=== PATIENT | female | born 1985 | race Caucasian/White ===

== ENCOUNTER → 2017-12-01 | Outpatient (CLI) | payer BC ==
[2017-12-01 15:34] LABS: Basophils % (A) 0 %; Eosinophils # (A) 0.1 k/uL (0-0.7); Eosinophils % (A) 2 %; HCT 39.5 % (34.0-46.0); HGB 13.7 gm/dL (11.4-16.0); Lymphocytes # (A) 2.1 k/uL (1.0-4.8); Lymphocytes % (A) 26 %; MCH 32.8 pg (25.0-35.0); MCHC 34.6 g/dL (31.0-37.0); MCV 94.8 fL (80.0-100.0); Mean Platelet Volume 6.6; Monocytes # (A) 0.3 k/uL (0-1.0); Monocytes % (A) 4 %; Neutrophils # (A) 5.4 k/uL (1.3-7.7); Neutrophils % (A) 66 %; Platelet Count 326 k/uL (150-450); RBC 4.16 m/uL (3.80-5.40); RDW 13.3 % (11.5-15.5); WBC 8.2 k/uL (3.8-10.6)
== END | disposition home or self-care (01) ==
LOC: LABPAT 14:54
PROVIDERS: ATTEND Obstetrics & Gynecology
DX: Z01.812 Encounter for preprocedural laboratory examination (principal)
CPT/HCPCS: 36415; 85025; 86850; 86900; 86901

== ENCOUNTER 2017-12-03 05:34 | Day surgery (SDC) | payer BC ==
[2017-12-02 11:33] VITALS: BMI 40.2
--- NOTE | 2017-12-02 12:40 | P.HPOB ---
History of Present Illness H&P Date: 12/02/17 Chief Complaint: Missed This patient is a pleasant 32-year-old 3 para 1 female who presented to me for her first obstetrical visit. Based on her last menstrual period she is approximately 9 weeks however ultrasound showed a 6-7 week intrauterine with a pole but no cardiac activity. Patient denies any bleeding. Patient's had a previous missed in the past and at this time as requested suction D&C at this time for treatment. Blood type is O positive. Review of Systems Genitourinary: Reports Menstruation: Reports amenorrhea Past Medical History Past Medical History: Asthma Additional Past Medical History / Comment(s): patient has had a missed with her first and a vaginal delivery with her second . History of Any Multi-Drug Resistant Organisms: None Reported Past Surgical History: Breast Surgery Additional Past Surgical History / Comment(s): D&C, LEFT BREAST LUMPECTOMY Past Anesthesia/Blood Transfusion Reactions: No Reported Reaction Past Psychological History: No Psychological Hx Reported Smoking Status: Never smoker Past Alcohol Use History: None Reported, Rare Past Drug Use History: None Reported - Past Family History Father Family Medical History: Hypertension Mother Family Medical History: No Reported History Medications and Allergies Home Medications Medication Instructions Recorded Confirmed Type Vit No.124/Iron/Folic 1 each PO DAILY 03/29/15 12/02/17 History [ Vitamin Tablet] Allergies Allergy/AdvReac Type Severity Reaction Status Date / Time No Known Allergies Allergy Verified 12/02/17 11:19 Exam - Vital Signs Vital signs: Intake and Output 12/01/17 12/02/17 12/02/17 22:59 06:59 14:59 Other: Weight 99.79 kg - OBG Physical Exam Abdomen: bowel sounds normal, no diffuse tenderness, no bruit present, no guarding noted, no hepatomegaly, no splenomegaly, no mass Vulva: both: normal Vagina: normal moisture, no discharge Cervix: no lesion (cervix is closed), no discharge Uterus: enlarged (uterus is approximately 7 weeks' size) Results Blood type is Rh+. Ultrasound on December 01 shows a intrauterine approximately 6-7 weeks size with no cardiac activity. Assessment and Plan Assessment: this is a pleasant 32-year-old 3 para 1 female 6-7 weeks estimated gestational age with missed who is requesting suction D&C for treatment. Patient I have discussed the surgery and risks including risks of infection, bleeding, possible uterine perforation. All the patient's questions are answered and a written consent is obtained. (1) Missed Status: Acute Code(s): O02.1 - MISSED SNOMED Code(s): 58304982
[~2017-12-03 05:34] MED LIST: Pre Op ABX Message 1 EACH MISC MISCELLANE ONE
[2017-12-03] MEDS ORDERED: ONDANSETRON 4 MG/2 ML VIAL IVP ONE (05:44)
[2017-12-03] MEDS ORDERED: MIDAZOLAM 2 MG/2 ML VIAL IV PRN (05:44)
[2017-12-03] MEDS ORDERED: SCOPOLAMINE 1.5MG/72HR PATCH TRANSDERM ONE (05:44)
[2017-12-03] MEDS ORDERED: fentaNYL (PF) 50 MCG/ML 2 ML AMP IV PRN (05:44)
[2017-12-03] MEDS ORDERED: DEXAMETHASONE SOD PHOSPHATE 10 MG/ML 1 ML VIAL IV ONE (05:44)
[2017-12-03] MEDS ORDERED: LACTATED RINGERS 1,000 ML IV SCH (05:44)
[2017-12-03] MEDS ORDERED: LIDOCAINE 1% 20 ML VIAL (10MG/ML) FOR IV START INTRADERMA ONE (06:10)
[2017-12-03] MEDS ORDERED: KETOROLAC 30 MG/ML 1 ML VIAL ONE (06:50)
[2017-12-03] MEDS ORDERED: fentaNYL (PF) 50 MCG/ML 2 ML AMP ONE (06:50)
[2017-12-03] MEDS ORDERED: MIDAZOLAM 2 MG/2 ML VIAL ONE (06:50)
[2017-12-03] MEDS ORDERED: LIDOCAINE 1% INJ 10MG/ML (20 ML MDV) ONE (06:50)
[2017-12-03] MEDS ORDERED: PROPOFOL 10 MG/ML 20 ML VIAL IV ONE (06:50)
--- NOTE | 2017-12-03 07:21 | P.OP ---
Date of Procedure: 12/03/17 Preoperative Diagnosis: Missed proximally 6-7 weeks Postoperative Diagnosis: Same Procedure(s) Performed: Suction D&C Anesthesia: MAC Surgeon: Epifanio Barajas Estimated Blood Loss (ml): 75 Urine output (ml): 25 Pathology: other (Uterine contents) Condition: stable Disposition: PACU Indications for Procedure: Please see dictated H&P for intimate details of this patient's admission. In brief summary is a pleasant 32-year-old 3 para 1 female who presented to me for a new obstetrical visit and was supposed to be 9 weeks gestation found to have a 6-7 week with no cardiac activity consistent with a missed . Patient requested suction D&C for treatment. Patient have discussed the surgery and risks and risks of infection, bleeding, possible uterine perforation. All the patient's questions are answered written consent is obtained. Operative Findings: Uterine contents consistent with products of conception Description of Procedure: This patient is taken to the operating room where she is laid in the supine position. She subsequent undergoes general mask anesthesia without incident. An adequate level of anesthesia, patient was placed in the dorsal lithotomy position. She is a vaginal perineal prep and drape. Examination under anesthesia shows a mid position uterus. I first drain the bladder for 25 mL of clear urine. A weighted speculum was placed in the posterior vagina. The anterior lip of cervix was grabbed with an Allis clamp. The cervix is then gently dilated to allow a 8 curved suction curette easily uterine cavity. Suction is applied and a large amount of tissue is removed. Multiple passes are made to no further tissue was noted. A gentle but thorough 4 quadrant curettage is then done and again no further tissue was noted. A final pass of the suction curet is done. This point bleeding is subsided. The Allis clamp was removed and the weighted speculum was removed. All counts are correct 3. Patient is awakened from anesthesia and taken recovery room in satisfactory condition. There are no complications.
[2017-12-03 07:26] VITALS: TEMP 97.1
[2017-12-03 07:34] VITALS: RESP 16
[2017-12-03 08:14] VITALS: BP 120/77; PULSE 64
== END 2017-12-03 09:01 | disposition home or self-care (01) ==
LOC: OR 05:34
PROVIDERS: ATTEND Obstetrics & Gynecology
DX: O02.1 Missed abortion (principal); J45.909 Unspecified asthma, uncomplicated; Z79.1 Long term (current) use of non-steroidal anti-inflammatories (NSAID); Z79.899 Other long term (current) drug therapy
CPT/HCPCS: 88305; 59820; J2250; J1100; J2405; J2001; J3010; J1885; J2704

== ENCOUNTER → 2018-08-03 | Outpatient (CLI) | payer BC ==
[2018-08-03 13:17] LABS: Glucose 3 Hour, Gest 93 mg/dL
== END | disposition home or self-care (01) ==
LOC: LABWHC1 08:20
PROVIDERS: ATTEND Obstetrics & Gynecology
DX: O99.810 Abnormal glucose complicating pregnancy (principal); Z3A.00 Weeks of gestation of pregnancy not specified
CPT/HCPCS: 36415; 82951; 82952

== ENCOUNTER 2018-09-30 05:45 | Inpatient (IN) | payer BC ==
--- NOTE | 2018-09-29 06:34 | P.HPOB ---
History of Present Illness H&P Date: 09/29/18 Chief Complaint: Gestational hypertension at term This patient is a pleasant 33-year-old 4 para 1 female estimated date of confinement 10/15/2018 estimated gestational age 37-6/7 weeks who presents to labor and delivery for induction of labor secondary to gestational hypertension. Patient was started on baby aspirin at 12 weeks secondary to her history of hypertension. Blood pressures have ranged 120s to 140s to 150s over 80s throughout the . Her current recommendations I recommended this patient proceed with delivery after 37 weeks. Patient was placed on bedrest when her blood pressures went up in the middle the and therefore she did not require medication for treatment. She did have preeclampsia labs that were normal and a 24-hour urine which was normal. care otherwise has been uncomplicated. Review of Systems Genitourinary: Reports Menstruation: Reports amenorrhea Past Medical History Past Medical History: Asthma Additional Past Medical History / Comment(s): patient has had a missed with her first and a vaginal delivery with her second . Patient has a history of migraine headaches. History of Any Multi-Drug Resistant Organisms: None Reported Past Surgical History: Breast Surgery Additional Past Surgical History / Comment(s): D&C, LEFT BREAST LUMPECTOMY Past Anesthesia/Blood Transfusion Reactions: No Reported Reaction Past Psychological History: No Psychological Hx Reported Smoking Status: Never smoker Past Alcohol Use History: None Reported, Rare Past Drug Use History: None Reported - Past Family History Father Family Medical History: Hypertension Mother Family Medical History: No Reported History Medications and Allergies Home Medications Medication Instructions Recorded Confirmed Type Vit No.124/Iron/Folic 1 each PO DAILY 03/29/15 12/03/17 History [ Vitamin Tablet] Ibuprofen [Motrin] 600 mg PO Q6HR PRN #40 tab 12/03/17 Rx Allergies Allergy/AdvReac Type Severity Reaction Status Date / Time No Known Allergies Allergy Verified 12/03/17 05:53 Exam - OBG Physical Exam Abdomen: bowel sounds normal, no diffuse tenderness, no bruit present, no guarding noted, no hepatomegaly, no splenomegaly, no mass Vulva: both: normal Vagina: normal moisture, no discharge Cervix: Cervix in the office was 2 cm dilated. Results blood work shows she is O positive, rubella immune, RPR nonreactive, hepatitis B negative, Glucola was abnormal with a normal three-hour gtt., group B strep was positive, 24 urine was 203 mg of protein, ultrasounds were normal most recent one was approximately 2 weeks ago which showed 6 lbs. 3 oz. which is the 67th percentile. Assessment and Plan Assessment: This is a pleasant 33-year-old 4 para 1 female 37-6/7 weeks gestation with gestational hypertension. Patient also has a positive group B strep culture. I'm going to recheck her preeclampsia labs. Plan is to proceed with induction at this time. The patient and her and I have discussed indications for delivery and the induction process. Antibiotic prophylaxis for the group B strep. Anticipate vaginal delivery. (1) 37 weeks gestation of Status: Acute Code(s): Z3A.37 - 37 WEEKS GESTATION OF SNOMED Cod e(s): 68490222 (2) Gestational hypertension Status: Acute Code(s): O13.9 - GESTATIONAL HTN W/O SIGNIFICANT PROTEINURIA, UNSP TRIMESTER SNOMED Code(s): 792488650 (3) Group B streptococcal carriage complicating Status: Acute Code(s): O99.820 - STREPTOCOCCUS B CARRIER STATE COMPLICATING SNOMED Code(s): 349254932748230
[2018-09-30] MEDS ORDERED: CARBOPROST TROMETHAMINE 250 MCG/ML 1 ML AMP IM PRN (05:52)
[2018-09-30] MEDS ORDERED: LACTATED RINGERS 1,000 ML IV SCH (05:52)
[2018-09-30] MEDS ORDERED: LIDOCAINE 0.5% (PF) 5 MG/ML (50 ML SDV) SQ PRN (05:52)
[2018-09-30] MEDS ORDERED: TERBUTALINE 1 MG/ML VIAL SQ PRN (05:52)
[2018-09-30] MEDS ORDERED: METHYLERGONOVINE 0.2 MG/ML 1 ML AMP IM PRN (05:52)
[2018-09-30] MEDS ORDERED: OXYTOCIN 30 UNITS/500 ML NS 30 UNIT in SALINE 1 500ML.BAG IV SCH (05:52)
[2018-09-30] MEDS ORDERED: AMPICILLIN 2,000 MG in SODIUM CHLORIDE 0.9% 100 ML IVPB STA (05:52)
[2018-09-30] MEDS ORDERED: OXYTOCIN 10 UNIT/ML 1 ML VIAL IM PRN (05:52)
[2018-09-30 06:23] LABS: Basophils % (A) 0 %; Eosinophils # (A) 0.1 k/uL (0-0.7); Eosinophils % (A) 1 %; HCT 39.1 % (34.0-46.0); HGB 13.2 gm/dL (11.4-16.0); Lymphocytes % (A) 16 %; MCH 32.4 pg (25.0-35.0); MCHC 33.8 g/dL (31.0-37.0); Mean Platelet Volume 7.1; Monocytes # (A) 0.5 k/uL (0-1.0); Monocytes % (A) 4 %; Neutrophils # (A) 9.8 k/uL (1.3-7.7); Neutrophils % (A) 78 %; Platelet Count 302 k/uL (150-450); RBC 4.07 m/uL (3.80-5.40); RDW 13.8 % (11.5-15.5); WBC 12.6 k/uL (3.8-10.6)
[2018-09-30 06:25] LABS: Appearance,Urine Clear (Clear); Bacteria,Urine Rare /hpf; Bilirubin,Urine Negative (Negative); Blood,Urine Negative (Negative); Color,Urine Yellow; Glucose,Urine (UA) Negative (Negative); Ketones,Urine Negative (Negative); Leukocyte Esterase,Urine Trace (Negative); Mucus,Urine Rare /hpf; Nitrite,Urine Negative (Negative); Protein,Urine Trace (Negative); RBC,Urine 1 /hpf (0-5); Specific Gravity,Urine 1.025 (1.001-1.035); Squamous Epithelial Cell,Urine 1 /hpf (0-4); Urobilinogen,Urine <2.0 mg/dL (<2.0); WBC,Urine 3 /hpf (0-5)
[2018-09-30 06:30] VITALS: BMI 45.5
[2018-09-30 06:31] LABS: INR 0.9 (<1.2); Partial Thromboplastin Time 23.8 sec (22.0-30.0); Prothrombin Time 9.5 sec (9.0-12.0)
[2018-09-30 06:32] LABS: Albumin 3.7 g/dL (3.5-5.0); Bilirubin, Delta 0.1 mg/dL (0.0-0.2); Bilirubin,Unconjugated 0.3 mg/dL (0.0-1.1); Total Bilirubin 0.4 mg/dL (0.2-1.3); Total Protein 6.7 g/dL (6.3-8.2); Uric Acid 5.6 mg/dL (3.7-7.4)
[2018-09-30] MEDS ORDERED: AMPICILLIN 1,000 MG in SODIUM CHLORIDE 0.9% 50 ML IVPB SCH (09:52)
--- NOTE | 2018-09-30 13:13 | P.PROBDLV ---
Vaginal Delivery Note - . Vaginal Delivery Note: Normal vaginal delivery viable male Apgars are 9 and 9 delivery time is 1300 hrs. Please see dictated H&P for intimate details of this patient's admission. Brief summary this is a pleasant 33-year-old 4 para 1 female 37-6/7 weeks gestation admitted this morning for induction of labor secondary to gestational hypertension. Patient is admitted she's to 3 cm dilated has artificial rupture membranes for clear fluid. Labor is induced with Pitocin per protocol. Patient gets to approximately 4 cm has a epidural placed. She does have a deceleration after this which response to position changes and IV fluids. Patient thereafter quickly progresses gets to complete. Patient pushes the head to the perineum and with 2 pushes delivered the infant's head over the intact perineum. Mouth and nares are bulb suctioned. There is a nuchal cord 1 which is easily reduced. With gentle downward traction we then have deliver the anterior and posterior shoulder and rest this infant's body. This is a vigorous viable male Apgars are 9 and 9 delivery time is 1300 hrs. After delivery of the the umbilical cord is allowed to continue pulsating and then doubly clamped and cut. It appears to be trivascular. The placenta is spontaneously delivered intact. Estimated blood loss is 100 mL. There are no lacerations and no repairs indicated. Cord blood is obtained due to oh plus status. All counts correct 3. There are no complications.
[2018-09-30] MEDS ORDERED: BENZOCAINE/MENTHOL SPRAY 1 GM/SPRAY AEROSOL TOPICAL PRN (13:44)
[2018-09-30] MEDS ORDERED: ZOLPIDEM 5 MG TAB PO PRN (13:44)
[2018-09-30] MEDS ORDERED: OXYTOCIN 20 UNITS/1000 ML NS 1,000 ML IV SCH (13:44)
[2018-09-30] MEDS ORDERED: ACETAMINOPHEN TAB 325 MG TAB PO PRN (13:44)
[2018-09-30] MEDS ORDERED: WITCH HAZEL 1 EACH MED..PAD TOPICAL PRN (13:44)
[2018-09-30] MEDS ORDERED: HYDROCORTISONE 2.5% RECTAL CREAM 30 GM TUBE RECTAL PRN (13:44)
[2018-09-30] MEDS ORDERED: diphenhydrAMINE 25 MG CAP PO PRN (13:44)
[2018-09-30] MEDS ORDERED: BISACODYL 10 MG SUPP RECTAL PRN (13:44)
[2018-09-30] MEDS ORDERED: SIMETHICONE 80 MG CHEWABLE PO PRN (13:44)
[2018-09-30] MEDS ORDERED: LANOLIN CREAM 5 GM TUBE TOPICAL PRN (13:44)
[2018-09-30] MEDS ORDERED: diphenhydrAMINE 50 MG/ML 1 ML VIAL IVP PRN (13:44)
[2018-09-30] MEDS: IBUPROFEN 600 MG TAB PO PRN ×2 (13:50→20:06)
[2018-09-30] MEDS: SENNOSIDES-DOCUSATE SODIUM 1 EACH TAB PO SCH ×2 (19:52→20:12)
--- NOTE | 2018-10-01 05:54 | P.PNOBGVD ---
Subjective - Subjective Patient reports: Reports appetite normal, Reports voiding normally, Reports pain well controlled, Reports ambulating normally : doing well Objective - Latest Vital Signs Latest vital signs: Vital Signs Temp Pulse Pulse Pulse Resp BP 10/01/18 00:00 97.7 F 76 16 131/79 09/30/18 20:00 98.2 F 93 16 109/52 09/30/18 15:14 88 16 115/55 09/30/18 14:41 99.1 F 83 16 122/61 09/30/18 14:14 78 16 124/61 09/30/18 13:59 99.1 F 80 16 121/64 09/30/18 13:44 79 16 120/63 09/30/18 13:29 100.4 F H 93 16 129/67 09/30/18 13:14 92 16 134/70 Intake and Output 09/30/18 09/30/18 10/01/18 14:59 22:59 06:59 Intake Total 1400 Balance 1400 Intake: IV 1400 Lactated Ringers 1,000 ml 1400 @ 125 mls/hr IV .Q8H [facility] Rx#:[id number] Other: # Voids 2 - Exam Lungs: bilateral: normal Chest: Normal S1, Normal S2 Extremities: Present: normal Abdomen: Present: normal appearance, soft Uterus: Present: normal, firm - Labs Labs: Abnormal Lab Results - Last 24 Hours (Table) 09/30/18 09/30/18 09/30/18 Range/Units 06:10 06:10 06:10 WBC 12.6 H (3.8-10.6) k/uL Neutrophils # 9.8 H (1.3-7.7) k/uL Alkaline Phosphatase 275 H (38-126) U/L Urine Protein Trace H (Negative) Ur Leukocyte Esterase Trace H (Negative) Urine Bacteria Rare H (None) /hpf Urine Mucus Rare H (None) /hpf Assessment and Plan Assessment: day #1. Patient is resting without complaints. Vital signs are stable she's afebrile. Uterus is firm nontender she's having normal lochia. Plan today is to continue routine care. Patient wishes to go home tomorrow. (1) 37 weeks gestation of Current Visit: No Status: Acute Code(s): Z3A.37 - 37 WEEKS GESTATION OF SNOMED Code(s): 21010785 (2) Gestational hypertension Current Visit: No Status: Acute Code(s): O13.9 - GESTATIONAL HTN W/O SIGNIFICANT PROTEINURIA, UNSP TRIMESTER SNOMED Code(s): 882630935 (3) Group B streptococcal carriage complicating Current Visit: No Status: Acute Code(s): O99.820 - STREPTOCOCCUS B CARRIER STATE COMPLICATING SNOMED Code(s): 386080233760691
--- NOTE | 2018-10-01 05:59 | P.DS ---
Providers Date of admission: 09/30/18 05:45 Expected date of discharge: 10/02/18 Attending physician: Epifanio Barajas Primary care physician: Stated None - Discharge Diagnosis(es) (1) 37 weeks gestation of Current Visit: No Status: Acute (2) Gestational hypertension Current Visit: No Status: Acute (3) Group B streptococcal carriage complicating Current Visit: No Status: Acute Hospital Course: Please see dictated H&P for intimate details of this patient's admission. Brief summary is a pleasant 33-year-old 4 para 1 female early 7-6/7 weeks gestation is admitted to labor and delivery for induction of labor secondary to gestational hypertension. Patient is admitted she is uncomplicated induction of labor quickly goes on have a vaginal delivery viable male infant. Please see dictated delivery note. Patient wishes to go home on day #2 follow up with me in 6 weeks. Procedures: Induction of labor and normal vaginal delivery Patient Condition at Discharge: Good Plan - Discharge Summary New Discharge Prescriptions: New Ibuprofen [Motrin] 600 mg PO Q6HR PRN #40 tab PRN Reason: Mild Pain Or Fever >= 100.5 No Action Vit No.124/Iron/Folic [ Vitamin Tablet] 1 each PO DAILY Discharge Medication List Vit No.124/Iron/Folic [ Vitamin Tablet] 1 each PO DAILY 03/29/15 [History] Ibuprofen [Motrin] 600 mg PO Q6HR PRN #40 tab 10/01/18 [Rx] Follow up Appointment(s)/Referral(s): Epifanio Barajas MD [STAFF PHYSICIAN] - 11/22/18 9:45 am Patient Instructions/Handouts: Vaginal Delivery (DC) Activity/Diet/Wound Care/Special Instructions: No intercourse or anything per vagina for 6 weeks. Please call if any fever, chills, excessive vaginal bleeding, and/or abdominal pain. Discharge Disposition: HOME SELF-CARE
[2018-10-01] MEDS ORDERED: ROPIVACAINE 100 MG, fentaNYL (PF) 200 MCG in SODIUM CHLORIDE 0.9% 76 ML EPIDURAL ONE (06:46)
[2018-10-01] MEDS: SENNOSIDES-DOCUSATE SODIUM 1 EACH TAB PO SCH ×2 (07:45→20:12)
[2018-10-01] MEDS: IBUPROFEN 600 MG TAB PO PRN ×2 (07:45→16:25)
[2018-10-02] MEDS: IBUPROFEN 600 MG TAB PO PRN (07:39)
[2018-10-02 07:56] VITALS: BP 132/81; PULSE 86; RESP 16; TEMP 98
== END 2018-10-02 10:30 | disposition home or self-care (01) | DRG 807 ==
LOC: 4FBP 05:45
PROVIDERS: ADMIT Obstetrics & Gynecology; ATTEND Obstetrics & Gynecology
PROC: 10E0XZZ Delivery of Products of Conception, External Approach (ICD-10-PCS; principal; 2018-09-30)
PROC: 3E033VJ Introduction of Other Hormone into Peripheral Vein, Percutaneous Approach (ICD-10-PCS; 2018-09-30)
PROC: 10907ZC Drainage of Amniotic Fluid, Therapeutic from Products of Conception, Via Natural or Artificial Opening (ICD-10-PCS; 2018-09-30)
PROC: 00HU33Z Insertion of Infusion Device into Spinal Canal, Percutaneous Approach (ICD-10-PCS; 2018-09-30)
PROC: 3E0R3BZ Introduction of Anesthetic Agent into Spinal Canal, Percutaneous Approach (ICD-10-PCS; 2018-09-30)
DX: O13.4 Gestational [pregnancy-induced] hypertension without significant proteinuria, complicating childbirth (principal); Z37.0 Single live birth; O99.824 Streptococcus B carrier state complicating childbirth; O69.81X0 Labor and delivery complicated by cord around neck, without compression, not applicable or unspecified; O99.52 Diseases of the respiratory system complicating childbirth; J45.909 Unspecified asthma, uncomplicated; O99.350 Diseases of the nervous system complicating pregnancy, unspecified trimester; G43.909 Migraine, unspecified, not intractable, without status migrainosus; Z79.899 Other long term (current) drug therapy; Z3A.37 37 weeks gestation of pregnancy; Z82.49 Family history of ischemic heart disease and other diseases of the circulatory system
CPT/HCPCS: 80076; 81001; 83615; 84550; 85025; 85610; 85730; 86850; 86900; 86901; 88307

== ENCOUNTER 2020-01-31 21:28 | Emergency (ER) | payer BC, OTHER ==
[2020-01-31 21:39] VITALS: RESP 18
--- NOTE | 2020-01-31 21:45 | ED ---
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 There is a needlestick injury MD Complaint: other (Needlestick injury evaluation) -: hour(s) Returns Today for: other (No new symptoms) Symptoms Since Prior Visit: no new symptoms Associated Symptoms: none - Related Data Home Medications Medication Instructions Recorded Confirmed Vit No.124/Iron/Folic 1 each PO DAILY 03/29/15 09/30/18 [ Vitamin Tablet] Previous Rx's Medication Instructions Recorded Ibuprofen [Motrin] 600 mg PO Q6HR PRN #40 tab 10/01/18 Allergies Allergy/AdvReac Type Severity Reaction Status Date / Time No Known Allergies Allergy Verified 01/31/20 21:39 Review of Systems ROS Statement: Those systems with pertinent positive or pertinent negative responses have been documented in the HPI. ROS Other: All systems not noted in ROS Statement are negative. Past Medical History Past Medical History: Asthma Additional Past Medical History / Comment(s): migraine headaches. History of Any Multi-Drug Resistant Organisms: None Reported Past Surgical History: Breast Surgery Additional Past Surgical History / Comment(s): D&C, LEFT BREAST LUMPECTOMY Past Anesthesia/Blood Transfusion Reactions: No Reported Reaction Past Psychological History: No Psychological Hx Reported Smoking Status: Never smoker Past Alcohol Use History: Occasional Past Drug Use History: None Reported - Past Family History Father Family Medical History: Hypertension General Exam - General Exam Comments Initial Comments: Patient does have puncture wound to right index finger no bleeding Limitations: no limitations General appearance: alert, in no apparent distress Head exam: Present: atraumatic, normocephalic, normal inspection Eye exam: Present: normal appearance, PERRL, EOMI. Absent: scleral icterus, conjunctival injection, periorbital swelling ENT exam: Present: normal exam, mucous membranes moist Neck exam: Present: normal inspection. Absent: tenderness, meningismus, lymphadenopathy Respiratory exam: Present: normal lung sounds bilaterally. Absent: respiratory distress, wheezes, rales, rhonchi, stridor Cardiovascular Exam: Present: regular rate, normal rhythm, normal heart sounds. Absent: systolic murmur, diastolic murmur, rubs, gallop, clicks GI/Abdominal exam: Present: soft, normal bowel sounds. Absent: distended, tenderness, guarding, rebound, rigid Extremities exam: Present: normal inspection, full ROM, normal capillary refill. Absent: tenderness, pedal edema, joint swelling, calf tenderness Back exam: Present: normal inspection Neurological exam: Present: alert, oriented X3, CN II-XII intact Psychiatric exam: Present: normal affect, normal mood Skin exam: Present: warm, dry, intact, normal color. Absent: rash Course Vital Signs 01/31/20 21:34 Temperature 98.8 F Pulse Rate 72 Respiratory 18 Rate Blood Pressure 153/97 O2 Sat by Pulse 100 Oximetry - Reevaluation(s) Reevaluation #1: 01/31/20 22:10 Medical records reviewed Reevaluation #2: 01/31/20 22:10 Spoke with patient regarding loath significantly low likelihood of a transmission as well as not knowing host, advice and currently is against prophylaxis, patient is agreeable Medical Decision Making - Medical Decision Making 34 female to the ER for evaluation needlestick injury. Patient has labs sent and can be discharged home Disposition Clinical Impression: Needlestick injury of finger Disposition: HOME SELF-CARE Condition: Good Instructions (If sedation given, give patient instructions): Needle Stick Injuries (ED) Is patient prescribed a controlled substance at d/c from ED?: No Referrals: None,Stated [Primary Care Provider] - 1-2 days
[2020-01-31 22:52] VITALS: BP 151/88; PULSE 70; TEMP 97.4
[2020-02-01 10:59] LABS: Hepatitis B Surface AB- Quant 567.1 mIU/mL; Hepatitis B Surface Antibody Reactive (Non-Reactive); Hepatitis C IgG Antibody Non-Reactive (Non-Reactive)
[2020-02-01 13:56] LABS: HIV 2 AB Non-Reactive (Non-Reactive); HIV AB P24 Non-Reactive (Non-Reactive); HIV P24 AG Non-Reactive (Non-Reactive)
== END 2020-01-31 22:51 | disposition home or self-care (01) ==
LOC: EC 21:28
DX: S61.230A Puncture wound without foreign body of right index finger without damage to nail, initial encounter (principal); Z77.21 Contact with and (suspected) exposure to potentially hazardous body fluids; W46.0XXA Contact with hypodermic needle, initial encounter; Y92.69 Other specified industrial and construction area as the place of occurrence of the external cause; Y99.0 Civilian activity done for income or pay
CPT/HCPCS: 36415; 86706; 86803; 87390; 99283

== ENCOUNTER → 2021-12-23 | Outpatient (CLI) | payer BC ==
[2021-12-23 19:13] LABS: African American GFR (CKD) 146.4 (60.0-200.0); Blood Urea Nitrogen 7.3 mg/dL (9.0-27.0); Calcium 8.9 mg/dL (8.7-10.3); Carbon Dioxide 22.6 mmol/L (20.0-27.5); Chloride 103 mmol/L (96-109); Glucose 75 mg/dL (70-110); Non-African American GFR(CKD) 126.3 (60.0-200.0); Potassium 4.4 mmol/L (3.5-5.5); Sodium 137 mmol/L (135-145)
== END | disposition home or self-care (01) ==
LOC: LABWHC1 11:08
PROVIDERS: ATTEND Internal Medicine Interventional Cardiology
DX: R00.2 Palpitations (principal)
CPT/HCPCS: 36415; 80048; 84443

== ENCOUNTER 2022-01-29 05:34 | Inpatient (IN) | payer BC ==
--- NOTE | 2022-01-28 07:43 | P.HPOB ---
History of Present Illness H&P Date: 01/28/22 Chief Complaint: Requested induction of labor. This patient is a pleasant 36-year-old 5 para 2 female estimated date of confinement 02/05/2022 estimated gestational age 39-0/7 weeks who presents to labor and delivery for requested induction of labor. Patient's care has been complicated by some sinus tachycardia for which she was evaluated by cardiology had a negative evaluation. She does have a history of gestational hypertension with previous and has been on a baby aspirin and was on a beta lenin for this for mostly symptom relief. Blood pressures have remained stable throughout the . Patient now presents for delivery. Review of Systems Genitourinary: Reports Menstruation: Reports amenorrhea Past Medical History Past Medical History: Asthma Additional Past Medical History / Comment(s): migraine headaches. Sinus tachycardia with negative maternal cardiac evaluation. History of Any Multi-Drug Resistant Organisms: None Reported Past Surgical History: Breast Surgery Additional Past Surgical History / Comment(s): D&C, LEFT BREAST LUMPECTOMY Past Anesthesia/Blood Transfusion Reactions: No Reported Reaction Past Psychological History: No Psychological Hx Reported Smoking Status: Never smoker Past Alcohol Use History: Occasional Past Drug Use History: None Reported - Past Family History Father Family Medical History: Hypertension Medications and Allergies Home Medications Medication Instructions Recorded Confirmed Type Vit No.124/Iron/Folic 1 each PO DAILY 03/29/15 09/30/18 History [ Vitamin Tablet] Ibuprofen [Motrin] 600 mg PO Q6HR PRN #40 tab 10/01/18 Rx Allergies Allergy/AdvReac Type Severity Reaction Status Date / Time No Known Allergies Allergy Verified 01/31/20 21:39 Exam - OBG Physical Exam Abdomen: bowel sounds normal, no diffuse tenderness, no bruit present, no guarding noted, no hepatomegaly, no splenomegaly, no mass Vulva: both: normal Vagina: normal moisture, no discharge Cervix: no lesion (Cervix in the office was 2 cm dilated and uneffaced), no discharge Uterus: enlarged (Fundal height 39 cm) Results blood work shows she is O positive, rubella immune, RPR nonreactive, hepatitis B negative, HIV is nonreactive, group B strep was negative however she does have a history of a positive with a previous . Most recent ultrasound done on January 01 shows baby to be 6 lbs. 5 oz. to 75th to 90th percentile. Glucola was normal. Assessment and Plan Assessment: This is a pleasant 36-year-old 5 para 2 female 39-0/7 weeks gestation presents to labor and delivery for requested induction of labor. Patient does have a history of positive strep in a previous was negative this . I am going to give her antibiotic prophylaxis because of this. Plan is Pitocin induction of labor and anticipate vaginal delivery. (1) 39 weeks gestation of Status: Acute Code(s): Z3A.39 - 39 WEEKS GESTATION OF SNOMED Code(s): 06622661 (2) Elective induction of labor planned Status: Acute Code(s): VUH7573 - SNOMED Code(s): 545216410
[2022-01-29] MEDS ORDERED: LIDOCAINE 0.5% (PF) 5 MG/ML (50 ML SDV) SQ PRN (06:07)
[2022-01-29] MEDS ORDERED: OXYTOCIN 30 UNITS/500 ML NS 30 UNIT in SALINE 1 500ML.BAG IV SCH ×2 (06:07→11:01)
[2022-01-29] MEDS ORDERED: CARBOPROST TROMETHAMINE 250 MCG/ML 1 ML AMP IM PRN (06:07)
[2022-01-29] MEDS ORDERED: METHYLERGONOVINE 0.2 MG/ML 1 ML AMP IM PRN (06:07)
[2022-01-29] MEDS ORDERED: OXYTOCIN 10 UNIT/ML 1 ML VIAL IM PRN (06:07)
[2022-01-29] MEDS ORDERED: LACTATED RINGERS 1,000 ML IV SCH (06:07)
[2022-01-29] MEDS ORDERED: TERBUTALINE 1 MG/ML VIAL SQ PRN (06:07)
[2022-01-29] MEDS ORDERED: AMPICILLIN 2,000 MG in SODIUM CHLORIDE 0.9% 100 ML IVPB STA (06:07)
[2022-01-29 06:25] LABS: Basophils % (A) 0 %; Eosinophils # (A) 0.2 k/uL (0-0.7); Eosinophils % (A) 3 %; HCT 35.4 % (34.0-46.0); HGB 12.4 gm/dL (11.4-16.0); Lymphocytes # (A) 1.3 k/uL (1.0-4.8); Lymphocytes % (A) 14 %; MCH 33.7 pg (25.0-35.0); MCV 96.2 fL (80.0-100.0); Monocytes # (A) 0.3 k/uL (0-1.0); Monocytes % (A) 4 %; Neutrophils % (A) 78 %; Platelet Count 286 k/uL (150-450); RBC 3.68 m/uL (3.80-5.40); RDW 14.8 % (11.5-15.5)
[2022-01-29] MEDS ORDERED: AMPICILLIN 1,000 MG in SODIUM CHLORIDE 0.9% 50 ML IVPB SCH (10:30)
[2022-01-29] MEDS ORDERED: BENZOCAINE/MENTHOL SPRAY 1 GM/SPRAY AEROSOL TOPICAL PRN (11:01)
[2022-01-29] MEDS ORDERED: HYDROCORTISONE 2.5% RECTAL CREAM 30 GM TUBE RECTAL PRN (11:01)
[2022-01-29] MEDS ORDERED: bisacodyL 10 MG SUPP RECTAL PRN (11:01)
[2022-01-29] MEDS ORDERED: ZOLPIDEM 5 MG TAB PO PRN (11:01)
[2022-01-29] MEDS ORDERED: diphenhydrAMINE 25 MG CAP PO PRN (11:01)
[2022-01-29] MEDS ORDERED: SIMETHICONE 80 MG CHEWABLE PO PRN (11:01)
[2022-01-29] MEDS ORDERED: LANOLIN CREAM 5 GM TUBE TOPICAL PRN (11:01)
[2022-01-29] MEDS ORDERED: diphenhydrAMINE 50 MG/ML 1 ML VIAL IVP PRN (11:01)
[2022-01-29] MEDS: IBUPROFEN 600 MG TAB PO PRN ×2 (11:11→17:49)
[2022-01-29] MEDS: SENNOSIDES-DOCUSATE SODIUM 1 EACH TAB PO SCH ×2 (11:26→19:56)
--- NOTE | 2022-01-29 12:26 | P.PROBDLV ---
Vaginal Delivery Note - . Vaginal Delivery Note: Normal vaginal delivery viable female Apgars 8 and 9 delivery time is 1017 hrs. Please see dictated H&P for intimate details of this patient's admission. Brief summary this is a pleasant 36-year-old 5 para 2 female 39 and one sevenths weeks gestation admitted to labor and delivery for requested induction of labor. On admission patient is 3 cm dilated has artificial rupture membranes for clear fluid. Labor is induced with Pitocin per protocol. She is given a dose of antibiotics due to history of positive strep previous . Labor progresses quickly she does get some nitrous oxide for pain control. This does provide her with good relief. She progresses quickly and gets to complete. With 2 pushes she pushes the head to the perineum. Posterior perineum was supported and we have controlled delivery of infant's head over the intact perineum. Infant had is straight occiput anterior presentation. Is a nuchal cord which is reduced. With gentle downward traction we have delivery the anterior and posterior shoulder and rest this infant's body. Is a vigorous viable female infant Apgars 8 and 9 delivery time was 1017 hrs. After delivery of the the umbilical cord is doubly clamped and cut appears to be trivascular. The placenta is then spontaneously delivered intact. Inspection of perineum shows no lacerations and no repair. and mother are stable in delivery room. All counts correct 3. There are no complications.
[2022-01-29] MEDS: ACETAMINOPHEN TAB 325 MG TAB PO PRN (22:17)
[2022-01-30] MEDS: IBUPROFEN 600 MG TAB PO PRN ×3 (04:08→18:20)
--- NOTE | 2022-01-30 06:28 | P.PNOBGVD ---
Subjective - Subjective Patient reports: Reports appetite normal, Reports voiding normally, Reports pain well controlled, Reports ambulating normally : doing well Objective - Latest Vital Signs Latest vital signs: Vital Signs Temp Pulse Resp BP Pulse Ox 01/30/22 00:00 98.6 F 82 16 142/73 97 01/29/22 20:00 97.6 F 90 16 123/75 98 01/29/22 15:50 98.6 F 91 16 138/74 01/29/22 12:30 98 F 82 16 115/57 01/29/22 12:00 91 16 119/61 01/29/22 11:30 88 16 124/57 01/29/22 11:15 85 16 131/76 01/29/22 11:00 88 16 132/79 01/29/22 10:45 80 16 129/64 01/29/22 10:30 83 16 125/65 Intake and Output 01/29/22 01/29/22 01/30/22 14:59 22:59 06:59 Intake Total 174.767 Output Total 274 Balance -99.233 Intake: Intake, IV Titration 174.767 Amount Oxytocin 30 Units/500 ml 174.767 Ns 30 unit In Saline 1 500ml.bag @ Per Protocol IV .Q0M [facility] Rx#:[id number] Output: Output, Quantitative 274 Blood Loss Other: # Voids 1 - Exam Lungs: bilateral: normal Chest: Normal S1, Normal S2 Extremities: Present: normal Abdomen: Present: normal appearance, soft Uterus: Present: normal, firm Assessment and Plan Assessment: day #1. Patient is resting without complaints. Vital signs are stable and she is afebrile. Uterus is firm nontender and she is having normal lochia. My impression this is a normal course. Patient does wish to go home therefore she is felt to be stable for discharge home follow up with me in 6 weeks. (1) 39 weeks gestation of Current Visit: No Status: Acute Code(s): Z3A.39 - 39 WEEKS GESTATION OF SNOMED Code(s): 02182392 (2) Elective induction of labor planned Current Visit: No Status: Acute Code(s): OWF0518 - SNOMED Code(s): 337514539
--- NOTE | 2022-01-30 06:31 | P.DS ---
Providers Date of admission: 01/29/22 05:34 Expected date of discharge: 01/30/22 Attending physician: Epifanio Barajas Primary care physician: Stated None - Discharge Diagnosis(es) (1) 39 weeks gestation of Current Visit: No Status: Acute (2) Elective induction of labor planned Current Visit: No Status: Acute Hospital Course: Please see dictated H&P for intimate details of this patient's admission. Brief summary this is a pleasant 36-year-old 5 para 2 female 39 and one sevenths weeks gestation admitted to labor and delivery for requested induction of labor. Patient is admitted she is uncomplicated induction of labor quickly goes on to have a vaginal delivery viable female infant. Please see dictated delivery note. day #1 patient's felt be stable for discharge home follow up with me in 6 weeks. Procedures: Induction of labor and normal vaginal delivery Patient Condition at Discharge: Good Plan - Discharge Summary New Discharge Prescriptions: Continue Ibuprofen [Motrin] 600 mg PO Q6HR PRN 30 Days #40 tab PRN Reason: Mild Pain Or Fever >= 100.5 No Action Vit No.124/Iron/Folic [ Vitamin Tablet] 1 each PO DAILY Discharge Medication List Vit No.124/Iron/Folic [ Vitamin Tablet] 1 each PO DAILY 03/29/15 [History] Ibuprofen [Motrin] 600 mg PO Q6HR PRN 30 Days #40 tab 01/30/22 [Rx] Follow up Appointment(s)/Referral(s): Epifanio Barajas MD [STAFF PHYSICIAN] - 03/12/22 11:00 am Patient Instructions/Handouts: Vaginal Delivery (DC) Activity/Diet/Wound Care/Special Instructions: No intercourse or anything per vagina for 6 weeks. Please call if any fever, chills, excessive vaginal bleeding, and/or abdominal pain. Discharge Disposition: HOME SELF-CARE
[2022-01-30] MEDS: SENNOSIDES-DOCUSATE SODIUM 1 EACH TAB PO SCH ×2 (07:50→19:36)
[2022-01-30 08:42] LABS: Basophils % (A) 0 %; Eosinophils # (A) 0.2 k/uL (0-0.7); Eosinophils % (A) 2 %; HCT 34.1 % (34.0-46.0); HGB 11.1 gm/dL (11.4-16.0); Lymphocytes # (A) 1.5 k/uL (1.0-4.8); Lymphocytes % (A) 17 %; MCH 31.8 pg (25.0-35.0); MCHC 32.5 g/dL (31.0-37.0); Monocytes # (A) 0.3 k/uL (0-1.0); Monocytes % (A) 4 %; Neutrophils # (A) 6.5 k/uL (1.3-7.7); Neutrophils % (A) 76 %; Platelet Count 238 k/uL (150-450); RBC 3.48 m/uL (3.80-5.40); RDW 14.5 % (11.5-15.5); WBC 8.6 k/uL (3.8-10.6)
[2022-01-30] MEDS: ACETAMINOPHEN TAB 325 MG TAB PO PRN (23:58)
[2022-01-31] MEDS: IBUPROFEN 600 MG TAB PO PRN (05:43)
--- NOTE | 2022-01-31 06:25 | P.PNOBGVD ---
Subjective - Subjective Patient reports: Reports appetite normal, Reports voiding normally, Reports pain well controlled, Reports ambulating normally : doing well Objective - Latest Vital Signs Latest vital signs: Vital Signs Temp Pulse Resp BP Pulse Ox 01/31/22 00:00 98.3 F 80 18 132/74 100 01/30/22 16:00 98.6 F 78 18 126/78 97 01/30/22 08:00 98.4 F 94 18 128/84 98 - Exam Lungs: bilateral: normal Chest: Normal S1, Normal S2 Extremities: Present: normal Abdomen: Present: normal appearance, soft Uterus: Present: normal, firm - Labs Labs: Abnormal Lab Results - Last 24 Hours (Table) 01/30/22 Range/Units 08:07 RBC 3.48 L (3.80-5.40) m/uL Hgb 11.1 L (11.4-16.0) gm/dL Assessment and Plan Assessment: day #2. Patient's baby had issues with jaundice and therefore she had to stay. Plan today is to continue routine care discharge home later today. (1) 39 weeks gestation of Current Visit: No Status: Acute Code(s): Z3A.39 - 39 WEEKS GESTATION OF SNOMED Code(s): 01332409 (2) Elective induction of labor planned Current Visit: No Status: Acute Code(s): UEH1610 - SNOMED Code(s): 793115508
[2022-01-31] MEDS: SENNOSIDES-DOCUSATE SODIUM 1 EACH TAB PO SCH (08:54)
[2022-01-31 08:58] VITALS: BP 140/74; PULSE 81; RESP 16; TEMP 98.1
== END 2022-01-31 14:55 | disposition home or self-care (01) | DRG 807 ==
LOC: 4FBP 05:34
PROVIDERS: ADMIT Obstetrics & Gynecology; ATTEND Obstetrics & Gynecology
PROC: 10907ZC Drainage of Amniotic Fluid, Therapeutic from Products of Conception, Via Natural or Artificial Opening (ICD-10-PCS; principal; 2022-01-29)
PROC: 10E0XZZ Delivery of Products of Conception, External Approach (ICD-10-PCS; 2022-01-29)
PROC: 3E033VJ Introduction of Other Hormone into Peripheral Vein, Percutaneous Approach (ICD-10-PCS; 2022-01-29)
DX: O69.81X0 Labor and delivery complicated by cord around neck, without compression, not applicable or unspecified (principal); Z37.0 Single live birth; J45.909 Unspecified asthma, uncomplicated; O99.52 Diseases of the respiratory system complicating childbirth; R00.0 Tachycardia, unspecified; O99.892 Other specified diseases and conditions complicating childbirth; Z3A.39 39 weeks gestation of pregnancy; Z82.49 Family history of ischemic heart disease and other diseases of the circulatory system; Z79.82 Long term (current) use of aspirin; Z86.32 Personal history of gestational diabetes; Z87.59 Personal history of other complications of pregnancy, childbirth and the puerperium
CPT/HCPCS: 85025; 86850; 86900; 86901